=== PATIENT | male | born 1980 | race Caucasian/White ===

== ENCOUNTER 2016-10-03 17:17 | Emergency (ER) | payer OTHER ==
[2016-10-03 17:37] VITALS: RESP 18; TEMP 98.2; O2SAT 97
[2016-10-03] MEDS ORDERED: LET GEL TOPICAL 1 EA SYR TP ONE (18:12)
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
[2016-10-03 19:28] VITALS: BP 138/97; PULSE 79
== END 2016-10-11 16:31 | disposition home or self-care (01) ==
PROC: 09Q0XZZ Repair Right External Ear, External Approach (ICD-10-PCS; principal; 2016-10-03)
DX: S01.311A Laceration without foreign body of right ear, initial encounter (principal); V13.4XXA Pedal cycle driver injured in collision with car, pick-up truck or van in traffic accident, initial encounter; Y92.410 Unspecified street and highway as the place of occurrence of the external cause; Y99.8 Other external cause status; Y93.89 Activity, other specified

== ENCOUNTER 2017-02-02 02:25 | Emergency (ER) | payer OTHER ==
[2017-02-02 02:30] VITALS: TEMP 98.6
--- NOTE | 2017-02-02 02:32 | EDPHY ---
H & P Stated Complaint: 18 HPI/ROS: HPI CHIEF COMPLAINT: Dental pain HISTORY OF PRESENT ILLNESS: This patient very pleasant 36-year-old male, otherwise healthy no significant medical history does not take any daily medications he presents emergency room with posterior right-sided lower wisdom tooth pain. He states he has impacted wisdom tooth there it started hurting him earlier tonight. He became concerned. He has not had any fever. Denies any significant swelling. Pain is throbbing woke him from sleep. Decided come the emergency room for evaluation. Past Medical History: No medical history Past Surgical History: No surgical history Social History: Denies daily use of drugs alcohol tobacco products. Family History: Noncontributory ROS REVIEW OF SYSTEMS: A comprehensive 10 point review of systems is otherwise negative aside from elements mentioned in the history of present illness. Exam Constitutional triage nursing summary reviewed, vital signs reviewed, awake/ alert. Eyes normal conjunctivae and sclera, EOMI, PERRLA. HENT oropharynx: No signs of Brian's, uvula midline, no significant dental K. However on the posterior right lower side wisdom tooth is impacted. No gumline abscess. No lymphadenopathy no significant swelling of the face or jaw line. Nontender on palpation. normal inspection, atraumatic, moist mucus membranes, no epistaxis, neck supple/ no meningismus, no raccoon eyes. Respiratory clear to auscultation bilaterally, normal breath sounds, no respiratory distress, no wheezing. Cardiovascular rate normal, regular rhythm, no murmur, no edema, distal pulses normal. Gastrointestinal soft, non-tender, no rebound, no guarding, normal bowel sounds, no distension, no pulsatile mass. Genitourinary no CVA tenderness. Musculoskeletal no midline vertebral tenderness, full range of motion, no calf swelling, no tenderness of extremities, no meningismus, good pulses, neurovascularly intact. Skin pink, warm, & dry, no rash, skin atraumatic. Neurologic awake, alert and oriented x 3, AAOx3, moves all 4 extremities equally, motor intact, sensory intact, CN II-XII intact, normal cerebellar, normal vision, normal speech. Psychiatric normal mood/affect. Heme/Lymph/Immune no lymphadenopathy. Differential Diagnosis: Includes but is not limited to in a particular order, dental infection, apical abscess, pulpitis, Aveolitis, osteomyelitis Medical Decision Making: Plan for this patient started on pen VK, ibuprofen for pain control. Referred to dentistry. Re-evaluation: This time this patient appears well nontoxic no evidence of any significant facial infection at this time. No significant facial swelling. Placed on Pen- VK and ibuprofen. Dental follow-up. Return if any worsening symptoms including worsening pain or facial swelling. Patient understands. Source: Patient - Personal History Current Tetanus/Diphtheria Vaccine: Unsure - Medical/Surgical History Hx Asthma: No Hx Chronic Respiratory Disease: No Hx Diabetes: No Hx Cardiac Disease: No Hx Renal Disease: No Hx Cirrhosis: No Hx Alcoholism: No Hx HIV/AIDS: No Hx Splenectomy or Spleen Trauma: No Other PMH: inj to l eye - Social History Smoking Status: Never smoked Constitutional: Initial Vital Signs Temperature (C) 37.0 C 02/02/17 02:27 Heart Rate 78 02/02/17 02:27 Respiratory Rate 20 02/02/17 02:27 Blood Pressure 103/64 02/02/17 02:27 O2 Sat (%) 97 02/02/17 02:27 Allergies/Adverse Reactions: No Known Allergies Allergy (Unverified 02/02/17 02:27) Home Medications: Medication Instructions Recorded Ibuprofen [Motrin (*)] 800 mg PO Q6-8PRN #10 tab 02/02/17 Penicillin V Potassium [Penicillin 500 mg PO BID #14 tab 02/02/17 VK] Departure - Departure Disposition: Home, Routine, Self-Care Clinical Impression: Pain, dental Condition: Good Instructions: Toothache (ED) Additional Instructions: 1. Take your antibiotic as prescribed. 2. Ibuprofen for pain. 3. Please follow up with dentistry. Please call their for an appointment. 4. Return to the emergency room if there is worsening swelling, pain, fever. Referrals: NONE *PRIMARY CARE P,. [Primary Care Provider] - As per Instructions [facility] [Outside] - As per Instructions [facility] [Outside] - As per Instructions Dental [facility] [Outside] - As per Instructions Dental [facility] [Outside] - As per Instructions Dental [facility] [Outside] - As per Instructions Prescriptions: Ibuprofen [Motrin (*)] 800 mg PO Q6-8PRN #10 tab Penicillin V Potassium [Penicillin VK] 500 mg PO BID #14 tab
[2017-02-02] MEDS ORDERED: PENICILLIN VK 500 MG TAB PO ONE (02:38)
[2017-02-02] MEDS ORDERED: IBUPROFEN 200 MG TAB PO ONE (02:38)
[2017-02-02 03:00] VITALS: BP 124/82; PULSE 72; RESP 14; O2SAT 98
== END 2017-02-02 02:59 | disposition home or self-care (01) ==
DX: K08.89 Other specified disorders of teeth and supporting structures (principal)